=== PATIENT | male | born 1950 | race Caucasian/White ===

== ENCOUNTER → 2018-12-11 | Outpatient (CLI) | payer MEDICARE ==
--- NOTE | 2018-12-11 15:23 | US ---
EXAMINATION TYPE: US venous doppler duplex LE LT DATE OF EXAM: 12/11/2018 3:05 PM COMPARISON: NONE CLINICAL HISTORY: M79.605 LT LEG PAIN. left inner upper leg bruising post injury. SIDE PERFORMED: Left TECHNIQUE: The lower extremity deep venous system is examined utilizing real time linear array sonog edmundo with graded compression, doppler sonography and color-flow sonography. VESSELS IMAGED: External Iliac Vein (EIV) Common Femoral Vein Deep Femoral Vein Greater Saphenous Vein * Femoral Vein Popliteal Vein Small Saphenous Vein * Proximal Calf Veins (* superficial vessels) Left Leg: Negative for DVT IMPRESSION: No evidence for DVT at this time
== END | disposition home or self-care (01) ==
LOC: RADUSWWP 14:32
PROVIDERS: ATTEND Internal Medicine
DX: M79.605 Pain in left leg (principal)

== ENCOUNTER → 2021-11-18 | Outpatient (CLI) | payer MEDICARE ==
[2021-11-18 16:35] LABS: LDL Cholesterol,Calculated 78.4 mg/dL (0.0-131.0)
[2021-11-18 16:36] LABS: ALT 23 U/L (10-49); AST 24 U/L (14-35); Albumin 4.2 g/dL (3.8-4.9); Albumin/Globulin Ratio 2.14 (1.60-3.17); Alkaline Phosphatase 92 U/L (41-126); Bilirubin, Conjugated <0.20 mg/dL (0.20-0.40); Total Protein 6.2 g/dL (6.2-8.2)
[2021-11-18 16:49] LABS: HCT 43.9 % (39.6-50.0); HGB 15.4 g/dL (13.0-17.0); MCH 29.4 pg (27.0-32.0); MCHC 35.1 g/dL (32.0-37.0); MCV 83.8 fL (80.0-97.0); Mean Platelet Volume 12.1 fL (9.5-12.2); NRBC Per 100 WBC 0 /100 WBCS (0.0-0.0); Platelet Count 151 X 10*3/uL (140-440); RBC 5.24 X 10*6/uL (4.40-5.60); RDW 13.9 % (11.5-14.5); WBC 5.38 X 10*3/uL (4.50-10.00)
== END | disposition home or self-care (01) ==
LOC: LABWHC1 10:45
PROVIDERS: ATTEND Urology
DX: E29.1 Testicular hypofunction (principal); D75.1 Secondary polycythemia
CPT/HCPCS: 36415; 80061; 80076; 85027

== ENCOUNTER → 2022-02-07 | Outpatient (CLI) | payer MEDICARE ==
--- NOTE | 2022-02-07 15:57 | MR ---
EXAMINATION TYPE: MR knee RT wo con DATE OF EXAM: 02/07/2022 COMPARISON: Outside right knee x-ray December 29, 2021 HISTORY: RIGHT KNEE PAIN and swelling for years. Started after accident per patient. History of prior surgery per patient. TECHNIQUE: Multiplanar, multisequence images of the knee is performed without IV contrast. FINDINGS: MEDIAL MENISCUS: Marked medial extrusion on coronal images with abnormal signal. Truncated appearance posterior horn with abnormal increased signal extends posteriorly and anteriorly. There is defect in the central body. There is increased signal in the anterior horn extending to superior articular christine face sagittal images 7 and 8. LATERAL MENISCUS: Anterior and posterior horns are intact without tear. CRUCIATE LIGAMENTS: The anterior and posterior cruciate ligaments are intact and unremarkable. COLLATERAL LIGAMENTS: The medial collateral ligament and lateral collateral ligament complex are inta ct and unremarkable. EXTENSOR MECHANISM: Visualized quadriceps and patellar tendons are intact. EFFUSION: [id number]-rg-ejslircs size suprapatellar joint effusion. POPLITEAL CYST: [id number] size popliteal/stewart cyst. TRICOMPARTMENT SPACES: At least Moderate tricompartment joint space loss greatest medial tibiofemoral and patellofemoral compartments. Yglq-en-sbnxplft tricompartment joint space spurring. CARTILAGE: Chondromalacia patella with cartilaginous loss along the superior and medial portion of th e patella. Cartilaginous loss medial tibiofemoral compartment. BONE MARROW SIGNAL: Subtle heterogeneous diminished T1 and increased T2 signal involving the medial t ibial plateau coronal image 20 and axial image 11 for reference. OTHER: No additional significant abnormality is appreciated. IMPRESSION: 1. Tricompartment degenerative changes that are moderate to advanced in appearance patellofemoral and medial tibiofemoral compartment as detailed above. Abnormal focal osseous edema medial tibial platea u central location on the sagittal images. 2. Complex full-thickness tear through the medial meniscus involving anterior and posterior horns and central body. 3. Small to moderate-sized suprapatellar joint effusion. 4. Kyunz-xl-njlobjod sized popliteal cyst.
== END | disposition home or self-care (01) ==
LOC: RADMRIMAIN 06:55
PROVIDERS: ATTEND Orthopaedic Surgery
DX: S83.241A Other tear of medial meniscus, current injury, right knee, initial encounter (principal); M25.461 Effusion, right knee; M71.21 Synovial cyst of popliteal space [Baker], right knee

== ENCOUNTER → 2022-03-12 | Outpatient (CLI) | payer MEDICARE ==
[2022-03-12 14:31] LABS: Basophils # (A) 0.06 X 10*3/uL (0.00-0.10); Basophils % (A) 0.8 %; Eosinophils # (A) 0.56 X 10*3/uL (0.04-0.35); Eosinophils % (A) 7.9 %; HCT 45.8 % (39.6-50.0); HGB 15.1 g/dL (13.0-17.0); Immature Grans, Automated 0.4 %; Lymphocytes # (A) 1.44 X 10*3/uL (0.90-5.00); Lymphocytes % (A) 20.2 %; MCH 28.7 pg (27.0-32.0); MCV 87.1 fL (80.0-97.0); Mean Platelet Volume 11.3 fL (9.5-12.2); Monocytes # (A) 0.52 X 10*3/uL (0.20-1.00); Monocytes % (A) 7.3 %; NRBC Per 100 WBC 0 /100 WBCS (0.0-0.0); Neutrophils # (A) 4.51 X 10*3/uL (1.80-7.70); Neutrophils % (A) 63.4 %; Platelet Count 169 X 10*3/uL (140-440); RBC 5.26 X 10*6/uL (4.40-5.60); RDW 13.1 % (11.5-14.5); WBC 7.12 X 10*3/uL (4.50-10.00)
[2022-03-12 16:17] LABS: Anion Gap 8.5 mmol/L (10.00-18.00); Carbon Dioxide 27.5 mmol/L (20.0-27.5); Potassium 4.8 mmol/L (3.5-5.5)
== END | disposition home or self-care (01) ==
LOC: LABPAT 08:32
PROVIDERS: ATTEND Orthopaedic Surgery
DX: Z01.818 Encounter for other preprocedural examination (principal); I44.0 Atrioventricular block, first degree; M23.91 Unspecified internal derangement of right knee
CPT/HCPCS: 36415; 80051; 85025; 93005

== ENCOUNTER → 2022-07-31 | Outpatient (CLI) | payer MEDICARE ==
[2022-07-31 14:59] LABS: African American GFR (CKD) >90 (>60 ml/min/1.73 sqM); Blood Urea Nitrogen 23 mg/dL (9-20); Non-African American GFR(CKD) 80 (>60 ml/min/1.73 sqM)
--- NOTE | 2022-07-31 18:25 | CT ---
EXAMINATION TYPE: CT abdomen w con CT DLP: 922.8 mGycm, Automated exposure control for dose reduction was used. DATE OF EXAM: 07/31/2022 3:31 PM COMPARISON: None CLINICAL INDICATION:Male, 72 years old with history of R10.9 UNSPECIFIED ABDOMINAL PAIN; UNSPECIFIED ABDOMINAL PAIN TECHNIQUE: Standard CT of the abdomen following the administration of 100 cc of Isovue 300 IV contr ast material and oral contrast. Coronal and sagittal reformats were performed. FINDINGS: LOWER CHEST: The visualized lung bases are clear. There are a couple of calcified granulomas within t he right lower lobe. ABDOMEN LIVER: Lateral left hepatic lobe 2.4 similar cyst with additional subcentimeter hypodense focus withi n the anterior right hepatic lobe which is too small characterize but likely represents a cyst. Diffu sely hypoattenuating. GALLBLADDER AND BILE DUCTS: Unremarkable. PANCREAS: Unremarkable. SPLEEN: Scattered calcified granulomas. ADRENAL GLANDS: Unremarkable. KIDNEYS AND URETERS: No evidence of hydronephrosis or renal calculus. The kidneys enhance symmetrical ly. Contrast is demonstrated within both collecting systems on the delayed phase. Bilateral renal sin us cysts identified. STOMACH AND BOWEL: Stomach and duodenum are unremarkable. No visualized focal bowel wall thickening o r surrounding inflammatory changes. Enteric contrast reaches the mid small bowel. No evidence of alexandrea l obstruction. PERITONEUM: No evidence of pneumoperitoneum or free fluid. VASCULATURE: Mild atherosclerotic calcifications are present throughout the abdominal aorta and its b ranches. No evidence of aortic aneurysm. MUSCULOSKELETAL: No acute osseous abnormalities LYMPH NODES: No gross evidence for lymphadenopathy. SOFT TISSUE/ABDOMINAL WALL: Tiny fat filled umbilical hernia. IMPRESSION: 1. No acute abdominal process. 2. Hepatic steatosis with hepatic cyst. 3. Sequelae of prior granulomatous disease.
== END | disposition home or self-care (01) ==
LOC: RADCTMAIN 14:19
PROVIDERS: ATTEND Internal Medicine
DX: K76.0 Fatty (change of) liver, not elsewhere classified (principal); K76.89 Other specified diseases of liver
CPT/HCPCS: 82565; 84520; 74160; 36415; Q9967

== ENCOUNTER → 2022-09-17 | Outpatient (CLI) | payer MEDICARE ==
--- NOTE | 2022-09-17 12:31 | XR ---
EXAMINATION TYPE: XR chest 2V DATE OF EXAM: 09/17/2022 COMPARISON: NONE TECHNIQUE: PA and lateral views submitted. HISTORY: Pain FINDINGS: The lungs are clear and there is no pneumothorax, pleural effusion, or focal pneumonia. Heart size normal and no overt failure. Osseous structures demonstrate hypertrophic and degenerative changes of the spine. Hyperinflation of the lungs. Biapical pleural thickening. AC joint arthropathy. IMPRESSION: 1. No acute process. No diagnostic evidence of pulmonary fibrosis by standard x-ray. If concern for p ulmonary fibrosis high-resolution CT of the chest would be recommended.
--- NOTE | 2022-09-17 12:32 | XR ---
EXAM TYPE: LUMBAR SPINE X RAY SERIES COMPARISON: NONE HISTORY: Pain TECHNIQUE: 4 views are submitted. FINDINGS: Alignment is anatomic. The pedicles are intact. The transverse processes are intact. There is hype rtrophic changes and anterior marginal vertebral patella. There is facet arthropathy L5-S1. Mild dege nerative disc disease L2-L3. IMPRESSION: 1. Multilevel hypertrophic changes with mild degenerative disc disease L2-L3.
== END | disposition home or self-care (01) ==
LOC: RADXRYALE 12:07
PROVIDERS: ATTEND Internal Medicine
DX: J84.10 Pulmonary fibrosis, unspecified (principal); R07.9 Chest pain, unspecified; M51.36 Other intervertebral disc degeneration, lumbar region
CPT/HCPCS: 71046; 72110